=== PATIENT | female | born 1945 | race Caucasian/White ===

== ENCOUNTER 2017-10-24 14:44 | Emergency (ER) | payer MEDICARE, OTHER ==
[~2017-10-24] VITALS: Ht 154.9 cm; Wt 70.0 kg
[2017-10-24] MEDS ORDERED: KETOROLAC 60MG/2ML VIAL IM ONE (16:45)
[2017-10-25 14:00] VITALS: BP 132/58
== END 2017-10-25 14:30 | disposition home or self-care (01) ==
LOC: ER 15:12
DX: S00.83XA Contusion of other part of head, initial encounter (principal); S16.1XXA Strain of muscle, fascia and tendon at neck level, initial encounter; W18.09XA Striking against other object with subsequent fall, initial encounter; Y93.89 Activity, other specified; Y92.89 Other specified places as the place of occurrence of the external cause; M19.90 Unspecified osteoarthritis, unspecified site; I10 Essential (primary) hypertension
CPT/HCPCS: 70110; 70486; 72110; 96372; 99284; J1885